=== PATIENT | female | born 2000 | race Caucasian/White ===

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

== ENCOUNTER 2022-03-03 08:27 | Emergency (ER) | payer OTHER, SELFPAY ==
--- NOTE | 2022-03-03 08:34 | ED.FEMALEGU ---
HPI - Female Genitourinary General Chief complaint: Urogenital-Female Stated complaint: Urinary Problem Time Seen by Provider: 03/03/22 08:34 Source: patient and RN notes reviewed History of Present Illness HPI Narrative: Patient is a 21-year-old female who presents the urgent care with complaints of a possible UTI due to dysuria, frequency and urgency that started this morning. Patient states that she used to get UTIs all the time and did have a urinary reflux surgery when she was younger. Patient states its been several months since she has had a UTI. States that she is also on her menstrual cycle. Patient not taken anything [id number] for her symptoms. No other acute complaints. No acute distress noted. Patient aware of the plan of care. Some parts of this dictation were generated by voice recognition software and may contain typographical and/or grammatical inaccuracies. Related Data Home Medications Medication Instructions Recorded Confirmed sertraline 50 mg tablet 50 mg PO DAILY 03/03/22 03/03/22 Allergies Allergy/AdvReac Type Severity Reaction Status Date / Time No Known Allergies Allergy Verified 03/03/22 08:41 Review of Systems Review of Systems: CONSTITUTIONAL: Denies fever, chills, or sweats. EYES: Denies visual changes, redness, or discharge. ENT: Denies rhinorrhea, congestion, sore throat, or otalgia. CARDIOVASCULAR: Denies chest pain, palpitations, or edema. RESPIRATORY: Denies cough or dyspnea. GASTROINTESTINAL: Denies abdominal pain, nausea, vomiting, or diarrhea. GENITOURINARY: Reports of dysuria and urinary frequency/urgency SKIN: Denies rash or itching. MUSCULOSKELETAL: Denies back pain, joint pain, or myalgia. NEUROLOGIC: Denies headache, numbness, or weakness. All other systems reviewed are negative, except as documented in HPI. [facility] Past Medical History Medical History (Updated 03/03/22 @ 08:56 by TANNER García) Acid reflux Frequent UTI Comments At the time of my signature, I reviewed and agree with the nursing past medical, surgical, social, and family history. There is no relevant family history pertinent to the patient complaint. Exam Narrative: GENERAL: This is a well-nourished, well-developed patient, in no apparent distress. HEAD: normocephalic, atraumatic. EYES: PERRL. Sclera clear/white. Vision is grossly intact. EARS: External ears normal NOSE: External nose normal with no obvious nasal discharge, nares without redness, no rhinorrhea. THROAT: Mucous membranes moist NECK: Neck supple CARDIOVASCULAR: Regular rate and rhythm without murmurs, gallops, or rubs. RESPIRATORY: Clear to auscultation. Breath sounds equal bilaterally. No wheezes, rales, or rhonchi. GASTROINTESTINAL: Abdomen soft, mild diffuse suprapubic tenderness, nondistended. Bowel sounds are active. SKIN: warm, intact with no suspicious lesions or rash, good texture and turgor. NEURO: awake, alert, and oriented to person, place and time. There were no obvious focal neurologic abnormalities. EXTREMITIES: No clubbing, cyanosis, or edema. BACK: Negative bilateral CVA tenderness Course Course Level of Care: Express Care Visit Vital Signs Vital signs: Vital Signs Temperature 99.2 F 03/03/22 08:37 Pulse Rate 94 03/03/22 08:37 Respiratory Rate 18 03/03/22 08:37 Blood Pressure 139/78 03/03/22 08:37 Pulse Oximetry 100 03/03/22 08:37 Oxygen Delivery Room Air 03/03/22 08:37 Temperature 99.2 F 03/03/22 08:43 Pulse Rate 94 03/03/22 08:43 Respiratory Rate 18 03/03/22 08:43 Blood Pressure 139/78 03/03/22 08:43 Pulse Oximetry 100 03/03/22 08:43 Oxygen Delivery Room Air 03/03/22 08:43 Reviewed MDM - Female Genitourinary MDM Narrative Medical decision making narrative: Reviewed lab results with the patient. She is aware that urine analysis is indicative of a urinary tract infection. Advised patient to complete the oral antibiotic regimen as prescrib
[2022-03-03 08:37] VITALS: BP 139/78; PULSE 94; RESP 18; TEMP 37.3; O2SAT 100
[2022-03-03 08:43] VITALS: BP 139/78; PULSE 94; RESP 18; TEMP 37.3; O2SAT 100
== END 2022-03-03 09:05 | disposition home or self-care (01) ==
PROVIDERS: Emergency Provider Nurse Practitioner Family
DX: N39.0 Urinary tract infection, site not specified (principal); K21.9 Gastro-esophageal reflux disease without esophagitis
CPT/HCPCS: 81003; 87077; 87086; 87186; 99213; G0463

== ENCOUNTER 2022-08-28 16:00 | Emergency (ER) | payer OTHER, SELFPAY ==
[2022-08-28 16:04] VITALS: BP 152/73; PULSE 97; RESP 20; TEMP 36.9; O2SAT 100
--- NOTE | 2022-08-28 16:40 | ED.GENADULT ---
HPI - General Adult General Chief complaint: Urogenital-Female Stated complaint: poss UTI Source: patient, family and RN notes reviewed History of Present Illness HPI narrative: 22 yo F presents to urgent care with mom at side. Pt states she believes she has a UTI. Pt states she has been having burning with urination and frequency since this am. Pt states the symptoms were worse 1 week ago but she bathed in apple cider vinegar which cured her symptoms until today. Pt states she was dx with UTI at the end of Jul and completed her Cipro Rx with good relief. Pt states she had another UTI in Feb and took Macrobid. Denies any vomiting, fevers, chills, flank pain, or vaginal discharge. Some parts of this dictation were generated by voice recognition software and may contain typographical and/or grammatical inaccuracies. Related Data Allergies Allergy/AdvReac Type Severity Reaction Status Date / Time No Known Allergies Allergy Verified 03/03/22 08:41 Review of Systems Review of Systems: CONSTITUTIONAL: Denies fever, chills, or sweats. EYES: Denies visual changes, redness, or discharge. ENT: Denies otalgia and sore throat CARDIOVASCULAR: Denies chest pain, palpitations, or edema. RESPIRATORY: Denies cough or dyspnea. GASTROINTESTINAL: Denies abdominal pain, nausea, vomiting, or diarrhea. GENITOURINARY: Dysuria SKIN: Denies rash or itching. MUSCULOSKELETAL: Denies back pain, joint pain, or myalgia. NEUROLOGIC: Denies headache, numbness, or weakness. [facility] Past Medical History Medical History (Updated 08/28/22 @ 16:43 by Emely Robles, BOY) Acid reflux Frequent UTI Comments At the time of my signature, I reviewed and agree with the nursing past medical, surgical, social, and family history. There is no relevant family history pertinent to the patient complaint. Exam Narrative: GENERAL: This is a well-nourished, well-developed patient, in no apparent distress. HEAD: normocephalic, atraumatic. EYES: PERRL. Sclera clear/white. Vision is grossly intact. EARS: External ears normal, auditory canals clear and without drainage, TMs normal without perforation. Hearing grossly intact. NOSE: External nose normal with no obvious nasal discharge, nares without redness, no rhinorrhea. THROAT: Mucous membranes moist, posterior pharynx clear. NECK: Neck supple, non-tender without lymphadenopathy, masses or thyromegaly. CARDIOVASCULAR: Regular rate and rhythm without murmurs, gallops, or rubs. RESPIRATORY: Clear to auscultation. Breath sounds equal bilaterally. No wheezes, rales, or rhonchi. GASTROINTESTINAL: Abdomen soft, non-tender, nondistended. Bowel sounds are active. No hepato-splenomegaly, or palpable masses. No guarding. SKIN: warm, intact with no suspicious lesions or rash, good texture and turgor. NEURO: awake, alert, and oriented to person, place and time. There were no obvious focal neurologic abnormalities. BACK: Nontender without deformity or crepitance. No flank tenderness. Course Course Level of Care: Express Care Visit Vital Signs Vital signs: Vital Signs Temperature 98.5 F 08/28/22 16:04 Pulse Rate 97 08/28/22 16:04 Respiratory Rate 20 08/28/22 16:04 Blood Pressure 152/73 H 08/28/22 16:04 Pulse Oximetry 100 08/28/22 16:04 Oxygen Delivery Room Air 08/28/22 16:04 Temperature 98.5 F 08/28/22 16:04 Pulse Rate 97 08/28/22 16:04 Respiratory Rate 20 08/28/22 16:04 Blood Pressure 152/73 H 08/28/22 16:04 Pulse Oximetry 100 08/28/22 16:04 Oxygen Delivery Room Air 08/28/22 16:04 Reviewed Medical Decision Making MDM Narrative Medical decision making narrative: Take antibiotics as directed. Follow-up with primary care physician, Urology, and gynecology. Differential Diagnosis Differential Diagnosis: UTI, STI, dysuria Vital Signs Vital Signs: Vital Signs Temperature 98.5 F 08/28/22 16:04 Pulse Rate 97 08/28/22 16:04 Respiratory Rate 20 08/28/22 16:04 Blood P
== END 2022-08-28 17:12 | disposition home or self-care (01) ==
PROVIDERS: Emergency Provider Nurse Practitioner Family
DX: N39.0 Urinary tract infection, site not specified (principal); K21.9 Gastro-esophageal reflux disease without esophagitis
CPT/HCPCS: 81003; 87077; 87086; 87088; 87491; 87591; 87661; 99214; G0463